=== PATIENT | female | born 1945 | race Caucasian/White ===

== ENCOUNTER 2016-06-25 11:22 | Emergency (ER) | payer OTHER ==
[2016-06-25 11:34] VITALS: BP 138/81; TEMP 98.1; BMI 19.1
--- NOTE | 2016-06-25 11:41 | ED.PDOC ---
General ED Provider: Dr. LISSY RICCI Chief Complaint: Respiratory Complaint Stated Complaint: Thick drainage from sinuses; treated several times in past few months. Continues Time Seen by Physician: 11:55 Mode of Arrival: Walk-In Information Source: Patient Exam Limitations: No limitations Primary Care Provider: JOHN MCCARTNEY Nursing and Triage Documentation Reviewed and Agree: Yes Review of Systems - Review Of Systems Constitutional: Reports: Other (Thick sinus discharge; sinus pain Left face and forehead) Eyes: Reports: No symptoms Ears, Nose, Mouth, Throat: Reports: No symptoms Respiratory: Reports: No symptoms Cardiac: Reports: No symptoms GI: Reports: No symptoms All Other Systems: Reviewed and Negative Past Medical History - Past Medical History Previously Healthy: No Endocrine: Reports: None Cardiovascular: Reports: None Respiratory: Reports: COPD Hematological: Reports: None Gastrointestinal: Reports: None Genitourinary: Reports: None Neuro/Psych: Reports: TIA Musculoskeletal: Reports: Arthritis Cancer: Reports: None Last Menstrual Period: N/A - Surgical History General Surgical History: Reports: None - Family History Family History: Reports: Other - Social History Smoking Status: Former smoker Hx Substance Use: No Alcohol Screening: None Physical Exam - Physical Exam Appearance: Well-appearing Eyes: LOUISE, EOMI, Conjunctiva clear ENT: Oropharynx normal Neck: Supple Respiratory: Airway patent, Breath sounds clear, Breath sounds equal GI/: Soft, Nontender, No masses, Bowel sounds normal Musculoskeletal: Normal strength Skin: Warm, Dry, Normal color Neurological: Sensation intact, Alert, Oriented Psychiatric: Affect appropriate, Mood appropriate Interpretation - Radiology Interpretation Radiology Interpretation By: Radiologist Exam Interpreted: Other (Sinus series) Critical Care Note - Critical Care Note Total Time (mins): 10 Course - Course Orders, Labs, Meds: Orders Category Date Time Status SINUS, PARANASAL MIN 3V Stat RADS 06/25/16 12:11 Completed Vital Signs: Temp Pulse Resp BP Pulse Ox 06/25/16 11:31 98.1 F 78 16 138/81 96 Departure - Departure Time of Disposition: 13:20 Disposition: HOME SELF-CARE Discharge Problem: Sinusitis Instructions: Sinusitis (ED) Condition: Good Pt referred to PMD for follow-up: Yes Additional Instructions: Follow up with primary care; call for appointment. Take antibiotic as prescribed. Prescriptions: Doxycycline Monohydrate [Monodox] 100 mg PO BID #20 capsule Prednisone 20 mg PO DAILYWM #14 tablet Allergies/Adverse Reactions: Allergies No Known Allergies Allergy (Verified 06/25/16 11:35) Home Medications: Ambulatory Orders Budesonide/Formoterol Fumarate [Symbicort 160-4.5 Mcg Inhaler] 10.2 gm IH PRN PRN 05/21/13 Diazepam [Valium] 10 mg PO DAILY 05/21/13 Hydrocodone/Acetaminophen [Lortab 7.5-500 Tablet] 1 each PO TID 05/21/13 Simvastatin [Zocor] 20 mg PO DAILY 05/21/13 Aspirin 81 mg PO DAILY PRN 09/17/14 Calcium Carbonate [Calcium] 600 mg PO DAILY 02/04/16 Doxycycline Monohydrate [Monodox] 100 mg PO BID #20 capsule 06/25/16 Prednisone 20 mg PO DAILYWM #14 tablet 06/25/16 Disposition Discussed With: Patient
--- NOTE | 2016-06-25 12:49 | DI ---
Examination: Three radiographic images of the small/sinuses. Comparison: CT examination of the brain performed on 05/08/2016. Reason for study: Sinusitis. FINDINGS: There is likely opacification of the left frontal sinus and complete opacification of the left maxillary sinus. The right frontal sinuses and maxillary sinuses are appropriately pneumatize d. No obvious fractures or malalignment are seen within the facial bones. Impression: 1. Likely left frontal and maxillary sinus disease. 2. No obvious fracture or malalignment of the facial bones.
== END 2016-06-25 13:41 | disposition home or self-care (01) ==
LOC: ED 11:22
DX: J32.9 Chronic sinusitis, unspecified (principal)
CPT/HCPCS: 99283

== ENCOUNTER 2016-10-28 13:54 | Emergency (ER) | payer OTHER ==
[2016-10-28 14:04] VITALS: BP 111/66; TEMP 99.6; BMI 19.8
[2016-10-28 14:56] LABS: BASOPHILS # (AUTO) 0.1 K/uL (0-0.2); BASOPHILS % (AUTO) 0.4 % (0.0-3.0); HEMATOCRIT 37.4 % (37.0-47.0); HEMOGLOBIN 12.8 g/dl (12.0-16.0); IMMATURE GRANULOCYTE % (AUTO) 0.4 % (0.0-5.0); LYMPHOCYTES # (AUTO) 0.6 K/uL (0.60-3.4); LYMPHOCYTES % (AUTO) 4.9 (10.0-50.0); MEAN CORPUSCULAR HEMOGLOBIN 31.1 pg (27.0-31.0); MEAN CORPUSCULAR HGB CONC 34.2 (31.8-35.4); MONOCYTES # (AUTO) 0.7 K/uL (0.4-2.0); MONOCYTES % (AUTO) 5.9 (0-10); NEUTROPHILS % (AUTO) 88.4; PLATELET COUNT 162 10^3/uL (140-440); RED BLOOD COUNT 4.11 10^6/ul (4.20-5.40); WHITE BLOOD COUNT 12.46 K/ul (4.6-10.2)
[2016-10-28 15:10] LABS: ALBUMIN/GLOBULIN RATIO 1.33; ANION GAP 13.4; BILIRUBIN,TOTAL 0.74 mg/dL (0.00-1.20); BUN/CREATININE RATIO 14.49; CALCIUM 9.1 mg/dL (8.2-10.2); CREATININE 0.69 mg/dL (0.60-1.30); POTASSIUM 3.4 mmol/L (3.5-5.10)
--- NOTE | 2016-10-28 15:17 | ED.PDOC ---
General ED Provider: Dr. TEJAS BURNS Chief Complaint: Sore Throat Stated Complaint: SORE THROAT Time Seen by Physician: 14:00 ( PRESENT AT ALL TIMES ) Mode of Arrival: Walk-In Information Source: Patient Exam Limitations: No limitations Primary Care Provider: JOHN MCCARTNEY Nursing and Triage Documentation Reviewed and Agree: Yes (SEEN WITH RN AT ALL TIMES ) EENT Complaint Exam - Throat Complaint/Exam Symptoms Are: Resolved Timimg: Intermittent Initial Severity: Mild Current Severity: None Aggravating: Reports: None Associated Signs and Symptoms: Reports: Nasal congestion, Vomiting (X2) Uvula Midline: Yes Nancy-tonsillar Fluctuence: No Scarlatinaform Rash Present: No Stridor Present: No Tonsillar Hypertrophy Present: No Tonsillar Exudate Present: No Nancy-tonsillar Swelling Present: No Adenopathy Present: No Splenomegaly Present: No Differential Diagnoses: Pharyngitis Review of Systems - Review Of Systems Constitutional: Reports: No symptoms Eyes: Reports: No symptoms Ears, Nose, Mouth, Throat: Reports: Throat pain Respiratory: Reports: No symptoms Cardiac: Reports: No symptoms GI: Reports: Vomiting (X2 NOT IN ED) : Reports: No symptoms Musculoskeletal: Reports: No symptoms Skin: Reports: No symptoms Neurological: Reports: No symptoms Endocrine: Reports: No symptoms Hematologic/Lymphatic: Reports: No symptoms All Other Systems: Reviewed and Negative Past Medical History - Past Medical History Previously Healthy: No Endocrine: Reports: None Cardiovascular: Reports: None Respiratory: Reports: COPD Hematological: Reports: None Gastrointestinal: Reports: None Genitourinary: Reports: None Neuro/Psych: Reports: TIA Musculoskeletal: Reports: Arthritis Cancer: Reports: None Last Menstrual Period: unknown - Surgical History General Surgical History: Reports: None - Family History Family History: Reports: Other - Social History Smoking Status: Former smoker Hx Substance Use: No Alcohol Screening: None Physical Exam - Physical Exam Appearance: Well-appearing, No pain distress, Well-nourished Eyes: LOUISE, EOMI, Conjunctiva clear ENT: Erythema Respiratory: Airway patent, Breath sounds clear, Breath sounds equal, Respirations nonlabored Cardiovascular: RRR, Pulses normal, No rub, No murmur GI/: Soft, Nontender, No masses, Bowel sounds normal, No Organomegaly Musculoskeletal: Normal strength, ROM intact, No edema, No calf tenderness Skin: Warm, Dry, Normal color Neurological: Sensation intact, Motor intact, Reflexes intact, Cranial nerves intact, Alert, Oriented Psychiatric: Affect appropriate, Mood appropriate Critical Care Note - Critical Care Note Total Time (mins): 0 Course - Course Hematology/Chemistry: 10/28/16 14:45 10/28/16 14:45 Orders, Labs, Meds: Lab Review 10/28/16 14:45 WBC 12.46 H RBC 4.11 L Hgb 12.8 Hct 37.4 MCV 91.0 MCH 31.1 H MCHC 34.2 RDW Coeff of Hien 12.0 Plt Count 162 Immature Gran % (Auto) 0.4 Neut % (Auto) 88.4 Lymph % (Auto) 4.9 L [place] % (Auto) 5.9 Eos % (Auto) 0.0 Baso % (Auto) 0.4 Immature Gran # (Auto) 0.1 Neut # 11.0 H Lymph # 0.6 [place] # 0.7 Eos # 0.0 Baso # 0.1 Sodium 140 Potassium 3.4 L Chloride 104 Carbon Dioxide 26 Anion Gap 13.4 BUN 10 Creatinine 0.69 Estimated GFR (MDRD) 84.00 BUN/Creatinine Ratio 14.49 Glucose 107 Calcium 9.1 Total Bilirubin 0.74 AST 21 ALT 12 Alkaline Phosphatase 45 L Total Protein 7.0 Albumin 4.0 Globulin 3.0 Albumin/Globulin Ratio 1.33 Orders Category Date Time Status CBC W/ AUTO DIFF Stat LAB 10/28/16 14:45 Completed COMPREHENSIVE METABOLIC PANEL Stat LAB 10/28/16 14:45 Completed MOLECULAR GROUP A STREP Stat LAB 10/28/16 14:37 Results STREP SCREEN Stat LAB 10/28/16 14:37 Results Vital Signs: Temp Pulse Resp BP Pulse Ox 10/28/16 13:58 99.6 F 99 H 20 111/66 95 Departure - Departure Time of Disposition: 15:23 Disposition: HOME SELF-CARE Discharge Problem: Sore throat symptom Pharyngitis Qualifiers: Pharyngitis/tonsillitis etiology: unspecified etiology Qualifier Code: (J02.9) Acute pharyngitis, unspecified Instructions: Pharyngitis (ED), Strep Throat (ED) Condition: Good Pt referred to PMD for follow-up: No Additional Instructions: Please call your Family Physician as soon as possible to schedule a follow-up appointment.Please call your Family Physician as soon as possible to schedule a follow-up appointment. Allergies/Adverse Reactions: Allergies No Known Allergies Allergy (Verified 10/28/16 14:04) Home Medications: Ambulatory Orders Budesonide/Formoterol Fumarate [Symbicort 160-4.5 Mcg Inhaler] 10.2 gm IH PRN PRN 05/21/13 Hydrocodone/Acetaminophen [Lortab 7.5-500 Tablet] 1 each PO TID 05/21/13 Simvastatin [Zocor] 20 mg PO DAILY 05/21/13 Aspirin 81 mg PO DAILY PRN 09/17/14 Calcium Carbonate [Calcium] 600 mg PO DAILY 02/04/16 Amoxicillin 500 mg PO Q8HR #21 tablet 10/28/16
== END 2016-10-28 15:37 | disposition home or self-care (01) ==
LOC: ED 13:54
DX: J02.9 Acute pharyngitis, unspecified (principal)
CPT/HCPCS: 36415; 80053; 85025; 87651; 87880; 99283

== ENCOUNTER 2018-01-03 08:59 | Outpatient (CLI) ==
--- NOTE | 2018-01-04 09:24 | MAMMO ---
EXAM: Bilateral digital screening mammogram (2-D and 3-D) History: Screening Findings: MLO and CC views of bilateral breasts demonstrate heterogeneously dense breast parenchyma which can obscure small lesions. CAD was reviewed by the radiologist. Tomosynthesis was performed. There are benign bilateral breast vascular calcifications. No dominant masses, no suspicious microc alcifications and no architectural distortions. Impression: Benign mammogram. Recommend followup routine screening mammography in 1 year. BIRADS 2
== END 2018-01-03 09:00 | disposition home or self-care (01) ==
LOC: RAD 08:59
PROVIDERS: ATTEND Internal Medicine
DX: Z12.31 Encounter for screening mammogram for malignant neoplasm of breast (principal)
CPT/HCPCS: 77067

== ENCOUNTER 2018-02-22 20:02 | Emergency (ER) ==
[2018-02-22 20:16] VITALS: BP 131/75; TEMP 98.2
--- NOTE | 2018-02-22 20:23 | ED.PDOC ---
General ED Provider: Dr. PRAVIN KUMARI-ER Chief Complaint: Sore Throat Stated Complaint: my throat is sore and so is my grandsons(here with her tonight ) Time Seen by Physician: 20:21 Mode of Arrival: Walk-In Information Source: Patient Exam Limitations: No limitations Primary Care Provider: KALYAN PAZ Nursing and Triage Documentation Reviewed and Agree: Yes Does patient meet sepsis criteria?: No System Inflammatory Response Syndrome: Not Applicable Sepsis Protocol: For patient's 13 years and over: Temp is 96.8 and below OR 101 and greater Pulse >90 BPM Resp >20/minute Acutely Altered Mental Status Are patient's symptoms suggestive of a new infection, such as: -Pneumonia -Skin, Soft Tissue -Endocarditis -UTI -Bone, Joint Infection -Implantable Device -Acute Abdominal Infection -Wound Infection -Meningitis -Blood Stream Catheter Infection -Unknown EENT Complaint Exam - Throat Complaint/Exam Onset/Duration: 24 hrs Symptoms Are: Still present Timimg: Intermittent Initial Severity: Mild Current Severity: Mild Aggravating: Reports: Eating Associated Signs and Symptoms: Reports: Fever, Cough, Nasal congestion Uvula Midline: Yes Nancy-tonsillar Fluctuence: No Scarlatinaform Rash Present: No Vesicles: Present: Pharynx Stridor Present: No Sinus Tenderness Present: No Tonsillar Hypertrophy Present: No Tonsillar Exudate Present: No Nancy-tonsillar Swelling Present: No Adenopathy Present: Yes Splenomegaly Present: No Differential Diagnoses: Pharyngitis Review of Systems - Review Of Systems Constitutional: Reports: Fever Eyes: Reports: No symptoms Ears, Nose, Mouth, Throat: Reports: Throat pain Respiratory: Reports: No symptoms Cardiac: Reports: No symptoms GI: Reports: No symptoms : Reports: No symptoms Musculoskeletal: Reports: No symptoms Skin: Reports: No symptoms Neurological: Reports: No symptoms Endocrine: Reports: No symptoms Hematologic/Lymphatic: Reports: No symptoms All Other Systems: Reviewed and Negative Past Medical History - Past Medical History Previously Healthy: No Endocrine: Reports: None Cardiovascular: Reports: None Respiratory: Reports: COPD Hematological: Reports: None Gastrointestinal: Reports: None Genitourinary: Reports: None Neuro/Psych: Reports: TIA Musculoskeletal: Reports: Arthritis Cancer: Reports: None Last Menstrual Period: na - Surgical History General Surgical History: Reports: None - Family History Family History: Reports: Other - Social History Smoking Status: Current some day smoker Hx Substance Use: No Alcohol Screening: None - Immunizations Tetanus Shot up to Date: No Physical Exam - Physical Exam Appearance: Well-appearing Eyes: LOUISE ENT: Erythema Neck: Supple Respiratory: Airway patent Cardiovascular: RRR GI/: Soft, Nontender, No masses, Bowel sounds normal, No Organomegaly Musculoskeletal: Normal strength Skin: Warm Neurological: Sensation intact, Motor intact, Reflexes intact, Cranial nerves intact, Alert, Oriented Psychiatric: Affect appropriate, Mood appropriate Critical Care Note - Critical Care Note Total Time (mins): 0 Course - Course Vital Signs: Temp Pulse Resp BP Pulse Ox 02/22/18 20:10 98.2 F 74 16 131/75 96 Departure - Departure Time of Disposition: 20:23 Disposition: HOME SELF-CARE Discharge Problem: Sore throat symptom Instructions: Pharyngitis (ED) Condition: Good Pt referred to PMD for follow-up: No IPMP verified?: No Additional Instructions: keflex 500mg bid x 7 days-==-salt water gargles--rcheck in 72 hrs if not improving Allergies/Adverse Reactions: Allergies No Known Allergies Allergy (Verified 10/28/16 14:04) Home Medications: Ambulatory Orders Hydrocodone/Acetaminophen [Lortab 7.5-500 Tablet] 1 each PO TID 05/21/13 Disposition Discussed With: Patient, Family
== END 2018-02-22 20:37 | disposition home or self-care (01) ==
LOC: ED 20:02
DX: J02.9 Acute pharyngitis, unspecified (principal); F17.210 Nicotine dependence, cigarettes, uncomplicated
CPT/HCPCS: 99282

== ENCOUNTER 2018-06-25 15:15 | Emergency (ER) | payer OTHER ==
[2018-06-25 15:18] VITALS: BP 144/83; TEMP 98.6; BMI 18.7
--- NOTE | 2018-06-25 15:59 | CT ---
EXAM: CT of the chest without contrast. HISTORY: Cough and fever. COMPARISON: 05/21/2013 and Chest x-ray dated 05/08/2016. TECHNIQUE: Contiguous axial images were obtained from the lung apices to the upper abdomen at 3 mm i ntervals. 1 mm images were reviewd with a lung algorithm. The study was performed without IV contra st. Sagittal and coronal reformats were reviewed. CONTRAST: None FINDINGS: Thoracic inlet: No masses or adenopathy. Lungs/Airways: The lung windows show no lobar consolidation or effusion. Focal tree in bud opacities seen in the right middle lobe. There is no lobar consolidation. Minimal emphysematous changes are seen. Calcified granulomas are seen. The pulmonary interstitium is normal. The airways are widely patent. There is no pleural thickening. Heart: The heart size is within normal limits. Coronary artery calcifications. Mediastinum: There are calcified mediastinal lymph nodes. Osseus structures: There is curvature of the spine to the there is S-shaped scoliosis of the spine. Disc narrowing and osteophyte formation is seen at all levels of the spine. Upper abdomen: Limited views of the upper abdomen are available. The visualized portion of the live r, spleen, pancreas, adrenal glands and kidneys are normal. IMPRESSION: 1. No lobar consolidation or effusion. 2. Focal tree in bud opacities in the right middle lobe are not seen can be seen with bronchiolitis in the to the infections.. Recommend follow-up. 3. Coronary artery calcifications. 4. Scoliosis.
--- NOTE | 2018-06-25 16:03 | CT ---
EXAM: CT abdomen pelvis without contrast HISTORY: Back pain COMPARISON: Same day CT chest TECHNIQUE: Serial axial images of the abdomen pelvis were performed from the lung bases through the inferior pelvis without contrast. These were viewed in multiple planes. FINDINGS: Lung bases are clear. Evaluation is limited. The liver is unremarkable and no focal hepatic lesion. The gallbladder is un remarkable. The kidneys are unremarkable with no visualized stone or hydronephrosis. The spleen is unremarkable. The pancreas is unremarkable. Stomach is minimally distended. Small bowel in the abdomen pelvis is unremarkable. There is moderate atherosclerotic disease. The c olon demonstrates diverticulosis without diverticulitis. Pelvic soft tissues are normal. Urinary bl adder is minimally distended. There is no free air or free fluid. The osseous structures demonstrat e degenerative disease with no acute abnormality and mild leftward curvature. IMPRESSION: 1. Scattered degenerative disease of the spine with mild leftward curvature. 2. Diverticulosis without diverticulitis.
--- NOTE | 2018-06-25 16:34 | ED.PDOC ---
General ED Provider: Dr. PRAVIN KUMARI-ER Chief Complaint: Back Pain Stated Complaint: bakari had cough of yellow stuff Time Seen by Physician: 15:15 Mode of Arrival: Walk-In Information Source: Patient Exam Limitations: No limitations Primary Care Provider: KALYAN PAZ Nursing and Triage Documentation Reviewed and Agree: Yes Does patient meet sepsis criteria?: No System Inflammatory Response Syndrome: Not Applicable Sepsis Protocol: For patient's 13 years and over: Temp is 96.8 and below OR 101 and greater Pulse >90 BPM Resp >20/minute Acutely Altered Mental Status Are patient's symptoms suggestive of a new infection, such as: -Pneumonia -Skin, Soft Tissue -Endocarditis -UTI -Bone, Joint Infection -Implantable Device -Acute Abdominal Infection -Wound Infection -Meningitis -Blood Stream Catheter Infection -Unknown Respiratory Complaint Exam - Respiratory Complaint/Exam Onset/Duration: one week Symptoms Are: Still present Timing: Intermittent Initial Severity: Mild Current Severity: Mild Location: Chest Character: Reports: Productive cough Aggravating: Reports: URI Associated Signs and Symptoms: Reports: Fever, URI, Nasal congestion. Denies: Rapid breathing, Dyspnea, Chills, Chest pain, Pleuritic chest pain, Wheezing, Hemoptysis, Dizziness, Calf pain, Calf swelling, Edema History of Healthcare-Acquired Pneumonia: No Home Oxygen Use: No Recent Stress Test: No Recent Echo/LV Function: No Current Antibiotic Use: No Current Asthma Medication Use: No Respiratory Distress: None Inadequate Respiratory Effort: No Dysphagia Present: No Stridor Present: No JVD Present: No Accessory Muscle Use: No Retractions: Not Present Diminished Breath Sounds: No Sinus Tenderness: None Grunting Respirations: No Kussmaul Respirations: No Differential Diagnoses: URI Review of Systems - Review Of Systems Constitutional: Reports: No symptoms Eyes: Reports: No symptoms Ears, Nose, Mouth, Throat: Reports: Nose discharge Respiratory: Reports: Cough Cardiac: Reports: No symptoms GI: Reports: No symptoms : Reports: No symptoms Musculoskeletal: Reports: No symptoms Skin: Reports: No symptoms Neurological: Reports: No symptoms Endocrine: Reports: No symptoms Hematologic/Lymphatic: Reports: No symptoms All Other Systems: Reviewed and Negative Past Medical History - Past Medical History Previously Healthy: No Endocrine: Reports: None Cardiovascular: Reports: None Respiratory: Reports: COPD Hematological: Reports: None Gastrointestinal: Reports: None Genitourinary: Reports: None Neuro/Psych: Reports: TIA Musculoskeletal: Reports: Arthritis Cancer: Reports: None Last Menstrual Period: N/A - Surgical History General Surgical History: Reports: None - Family History Family History: Reports: Other - Social History Smoking Status: Current every day smoker, Heavy tobacco smoker Hx Substance Use: No Alcohol Screening: None - Immunizations Tetanus Shot up to Date: No Physical Exam - Physical Exam Appearance: Well-appearing, No pain distress, Well-nourished Eyes: LOUISE, EOMI, Conjunctiva clear ENT: Ears normal, Nose normal, Oropharynx normal Neck: Supple Respiratory: Airway patent Cardiovascular: RRR GI/: Soft Musculoskeletal: Normal strength Skin: Warm, Dry, Normal color Neurological: Sensation intact, Motor intact, Reflexes intact, Cranial nerves intact, Alert, Oriented Psychiatric: Affect appropriate Interpretation - Radiology Interpretation Radiology Interpretation By: Radiologist Radiology Results: Positive Exam Interpreted: CT Scan Critical Care Note - Critical Care Note Total Time (mins): 0 Course - Course Hematology/Chemistry: 06/25/18 15:30 06/25/18 15:30 Orders, Labs, Meds: Lab Review 06/25/18 06/25/18 06/25/18 15:20 15:30 15:30 WBC 7.66 RBC 4.17 L Hgb 12.6 Hct 38.4 MCV 92.1 MCH 30.2 MCHC 32.8 RDW Coeff of Hien 12.1 Plt Count 200 Immature Gran % (Auto) 0.3 Neut % (Auto) 61.1 Lymph % (Auto) 26.2 [place] % (Auto) 9.4 Eos % (Auto) 2.3 Baso % (Auto) 0.7 Immature Gran # (Auto) 0.0 Neut # (Auto) 4.7 Lymph # (Auto) 2.0 [place] # (Auto) 0.7 Eos # (Auto) 0.2 Baso # (Auto) 0.1 Sodium 141.3 Potassium 3.88 Chloride 102.5 Carbon Dioxide 29.3 Anion Gap 13.38 BUN 13.4 Creatinine 0.51 L Estimated GFR (MDRD) 118.00 BUN/Creatinine Ratio 26.27 Glucose 85.7 Calcium 8.92 Total Bilirubin 0.26 AST 24.7 ALT 16.2 Alkaline Phosphatase 56.6 Total Protein 6.88 Albumin 4.17 Globulin 2.71 Albumin/Globulin Ratio 1.53 Urine Color Yellow Urine Clarity Clear Urine pH 6.5 Ur Specific [place] 1.010 Urine Protein Negative Urine Glucose (UA) Negative Urine Ketones Negative Urine Blood Trace-intact Urine Nitrite Negative Urine Bilirubin Negative Urine Urobilinogen 0.2 Ur Leukocyte Esterase Trace Urine Microscopic RBC 0-2 Urine Microscopic WBC 0-2 Ur Squamous Epith Cells 5-10 Influ A Molecular Assay Influ B Molecular Assay 06/25/18 16:07 WBC RBC Hgb Hct MCV MCH MCHC RDW Coeff of Hien Plt Count Immature Gran % (Auto) Neut % (Auto) Lymph % (Auto) [place] % (Auto) Eos % (Auto) Baso % (Auto) Immature Gran # (Auto) Neut # (Auto) Lymph # (Auto) [place] # (Auto) Eos # (Auto) Baso # (Auto) Sodium Potassium Chloride Carbon Dioxide Anion Gap BUN Creatinine Estimated GFR (MDRD) BUN/Creatinine Ratio Glucose Calcium Total Bilirubin AST ALT Alkaline Phosphatase Total Protein Albumin Globulin Albumin/Globulin Ratio Urine Color Urine Clarity Urine pH Ur Specific [place] Urine Protein Urine Glucose (UA) Urine Ketones Urine Blood Urine Nitrite Urine Bilirubin Urine Urobilinogen Ur Leukocyte Esterase Urine Microscopic RBC Urine Microscopic WBC Ur Squamous Epith Cells Influ A Molecular Assay Negative by naat Influ B Molecular Assay Negative by naat Orders Category Date Time Status BLOOD CULTURE (ED ONLY) Stat LAB 06/25/18 15:30 Received CBC W/ AUTO DIFF Stat LAB 06/25/18 15:30 Completed COMPREHENSIVE METABOLIC PANEL Stat LAB 06/25/18 15:30 Completed FLU A/B MOLECULAR Stat LAB 06/25/18 16:07 Completed MOLECULAR GROUP A STREP Stat LAB 06/25/18 16:07 Completed URINALYSIS C & S IF INDICATED Stat LAB 06/25/18 15:[address] ABDOMEN/PELVIS WO CONTRAST Stat RADS 06/25/18 15:[address] CHEST W/O CONTRAST Stat RADS 06/25/18 15:21 Completed Vital Signs: Temp Pulse Resp BP Pulse Ox 06/25/18 15:15 98.6 F 102 H 20 144/83 H 94 L Departure - Departure Time of Disposition: 16:33 Disposition: HOME SELF-CARE Discharge Problem: Bronchitis URI (upper respiratory infection) Qualifiers: URI type: unspecified viral URI Qualified Code(s): J06.9 - Acute upper respiratory infection, unspecified Instructions: Acute Bronchitis (ED) Condition: Good Pt referred to PMD for follow-up: No IPMP verified?: No Additional Instructions: keflex 500mg bid x 7 days--f/u with pcp if not better in a few days Allergies/Adverse Reactions: Allergies No Known Allergies Allergy (Verified 06/25/18 15:18) Home Medications: Ambulatory Orders Hydrocodone/Acetaminophen [Lortab 7.5-500 Tablet] 1 each PO TID 05/21/13 Disposition Discussed With: Patient, Family
== END 2018-06-25 16:39 | disposition home or self-care (01) ==
LOC: ED 15:15
DX: J40 Bronchitis, not specified as acute or chronic (principal); J06.9 Acute upper respiratory infection, unspecified; F17.210 Nicotine dependence, cigarettes, uncomplicated; J44.9 Chronic obstructive pulmonary disease, unspecified; M54.9 Dorsalgia, unspecified
CPT/HCPCS: 36415; 80053; 81001; 85025; 87040; 87502; 87651; 99283

== ENCOUNTER 2019-01-20 16:10 | Emergency (ER) | payer OTHER ==
[2019-01-20 16:18] VITALS: BP 110/65; TEMP 98; BMI 18.1
[2019-01-20] MEDS ORDERED: MOTRIN PO STA (17:22)
--- NOTE | 2019-01-20 17:25 | ED.PDOC ---
General ED Provider: Dr. EDGAR CANCHOLA Chief Complaint: Respiratory Complaint Stated Complaint: sore throat for 2 days. Exposed to grandson with the same. Time Seen by Physician: 17:23 Mode of Arrival: Walk-In Information Source: Patient Primary Care Provider: KALYAN PAZ Nursing and Triage Documentation Reviewed and Agree: Yes Does patient meet sepsis criteria?: No System Inflammatory Response Syndrome: Not Applicable Sepsis Protocol: For patient's 13 years and over: Temp is 96.8 and below OR 101 and greater Pulse >90 BPM Resp >20/minute Acutely Altered Mental Status Are patient's symptoms suggestive of a new infection, such as: -Pneumonia -Skin, Soft Tissue -Endocarditis -UTI -Bone, Joint Infection -Implantable Device -Acute Abdominal Infection -Wound Infection -Meningitis -Blood Stream Catheter Infection -Unknown Review of Systems - Review Of Systems Constitutional: Reports: No symptoms Eyes: Reports: No symptoms Ears, Nose, Mouth, Throat: Reports: Throat pain Respiratory: Reports: No symptoms Cardiac: Reports: No symptoms GI: Reports: No symptoms : Reports: No symptoms Musculoskeletal: Reports: Back pain Skin: Reports: No symptoms Neurological: Reports: No symptoms Endocrine: Reports: No symptoms Hematologic/Lymphatic: Reports: No symptoms All Other Systems: Reviewed and Negative Past Medical History - Past Medical History Previously Healthy: No Endocrine: Reports: None Cardiovascular: Reports: None Respiratory: Reports: COPD Hematological: Reports: None Gastrointestinal: Reports: None Genitourinary: Reports: None Neuro/Psych: Reports: TIA Musculoskeletal: Reports: Arthritis Cancer: Reports: None Last Menstrual Period: N/A - Surgical History General Surgical History: Reports: None - Family History Family History: Reports: Other - Social History Smoking Status: Current every day smoker, Heavy tobacco smoker Hx Substance Use: No Alcohol Screening: None Physical Exam - Physical Exam Appearance: Well-appearing, No pain distress, Well-nourished Eyes: LOUISE, EOMI, Conjunctiva clear ENT: Erythema Respiratory: Airway patent, Breath sounds clear Cardiovascular: RRR, Pulses normal, No rub, No murmur GI/: Soft, Nontender, No masses, Bowel sounds normal, No Organomegaly Musculoskeletal: Normal strength, ROM intact, No edema, No calf tenderness Skin: Warm, Dry, Normal color Neurological: Sensation intact, Motor intact, Reflexes intact, Cranial nerves intact, Alert, Oriented Psychiatric: Affect appropriate, Mood appropriate Critical Care Note - Critical Care Note Total Time (mins): 0 Course - Course Orders, Labs, Meds: Orders Category Date Time Status RAPID STREP SCREEN [MOLECULAR GROUP A STREP] Stat LAB 01/20/19 17:22 Uncollected Ibuprofen [Motrin] MEDS 01/20/19 17:22 Stat 400 mg PO ONCE STA Vital Signs: Temp Pulse Resp BP Pulse Ox 01/20/19 16:15 98.0 F 82 16 110/65 99 Departure - Departure Time of Disposition: 18:15 Disposition: HOME SELF-CARE Discharge Problem: Pharyngitis Qualifiers: Pharyngitis/tonsillitis etiology: other specified organisms Qualified Code(s): J02.8 - Acute pharyngitis due to other specified organisms URI (upper respiratory infection) Qualifiers: URI type: unspecified viral URI Qualified Code(s): J06.9 - Acute upper respiratory infection, unspecified Instructions: Pharyngitis (ED), Viral Syndrome in Children (ED) Condition: Fair Pt referred to PMD for follow-up: Yes IPMP verified?: No Additional Instructions: Take Motrin as needed for pain Follow up with PCP in 3 days Allergies/Adverse Reactions: Allergies No Known Allergies Allergy (Verified 01/20/19 16:18) Home Medications: Ambulatory Orders 1 [No Reported Medications] 01/20/19
== END 2019-01-20 18:25 | disposition home or self-care (01) ==
LOC: ED 16:10
DX: J06.9 Acute upper respiratory infection, unspecified (principal); J02.9 Acute pharyngitis, unspecified; F17.210 Nicotine dependence, cigarettes, uncomplicated
CPT/HCPCS: 87651; 99283